=== PATIENT | female | born 1980 | race Caucasian/White ===

== ENCOUNTER 2017-09-24 17:00 | Emergency (ER) | payer OTHER ==
[2017-09-24] MEDS: DIPHENHYDRAMINE 50 MG INJ IV (19:12)
[2017-09-24] MEDS: HYDROmorphONE 1 MG/ML SYG IV (19:13)
[2017-09-24] MEDS: PROCHLORPERAZINE 10 MG INJ IV (19:17)
== END 2017-09-24 20:27 | disposition home or self-care (01) ==
LOC: FTE 17:00
DX: G43.909 Migraine, unspecified, not intractable, without status migrainosus (principal)
CPT/HCPCS: 96374; 96375; 99284-25